=== PATIENT | male | born 1985 | race Caucasian/White ===

== ENCOUNTER 2016-04-22 09:48 | Emergency (ER) | payer OTHER ==
[~2016-04-22] VITALS: Wt 124.0 kg
[~2016-04-22 09:48] MED LIST: MED4DP PO; NAPR-260 PO
[2016-04-22] MEDS ORDERED: SOD CHLORIDE 0.9% 1,000 ML IV STA (10:39)
--- NOTE | 2016-04-22 10:57 | RADRPT ---
PROCEDURE: XR Chest. CLINICAL INDICATION: Syncope TECHNIQUE: AP view of the chest was obtained. COMPARISON: 11/24/2015 FINDINGS: The cardiomediastinal silhouette is within normal limits. The lungs are clear. No pleural effusion or pneumothorax is evident. IMPRESSION: No evidence of active cardiopulmonary disease. RPTAT: GG .Donell Blackwood MD, MD Date Time Electronically viewed and signed by .Donell Blackwood MD, on 04/22/2016 10:57 .O/
--- NOTE | 2016-04-22 11:06 | RADRPT ---
PROCEDURE: CT Brain without. CLINICAL INDICATION: Syncope TECHNIQUE: A CT of the brain was performed utilizing axial sections from the skull base through th e vertex without contrast. The scan was reviewed in soft tissue brain and high frequency resolution bone algorithm windows. Images were reviewed on a high-resolution PACS workstation. The exam CTDI = 43.95 mGy, and the DLP = 720.23 mGy-cm. COMPARISON: None available FINDINGS: The ventricles are normal in size and midline in position. There is no intracranial hemorrhage, mid line shift, or mass effect. No abnormal extra-axial fluid collections are identified. There is a 1 .8 x 3.1 cm cyst within the left anterior middle cranial fossa. The fong-white differentiation is we ll preserved. The basal cisterns are patent. The posterior fossa is unremarkable. The visualized portions of the orbits are unremarkable. There is mild mucosal thickening of the max illary sinuses. The paranasal sinuses and mastoid air cells are otherwise clear. No calvarial frac ture or abnormality are identified. The soft tissues are unremarkable. IMPRESSION: 1. No acute intracranial abnormality identified. 2. 1.8 x 3.1 cm arachnoid cyst within the left middle cranial fossa. 3. Mild mucosal thickening of the maxillary sinuses. RPTAT: HH .Jaymie Zarate MD, MD Date Time Electronically viewed and signed by .Jaymie Zarate MD, on 04/22/2016 11:06 .G/
[2016-04-22] MEDS ORDERED: KETOROLAC 15 MG INJ IV STA (11:33)
[2016-04-22] MEDS ORDERED: ACETAMINOPHEN 500 MG TAB PO STA (11:33)
[2016-04-22 11:37] LABS: BASOPHILS % 0.5 % (0.0-2.0); EOSINOPHILS # 0.3 10^3/ul (0.0-0.5); EOSINOPHILS % 4.4 % (0.0-7.0); HEMATOCRIT 49.6 % (42.0-52.0); HEMOGLOBIN 16.9 g/dl (14.0-18.0); LYMPHOCYTES # 0.9 10^3/ul (0.8-2.9); LYMPHOCYTES % 15.9 % (15.0-51.0); MEAN CORPUSCULAR HGB CONC 34.2 g/dl (32.0-37.0); MEAN CORPUSCULAR VOLUME 93.6 fl (82.0-101.0); MEAN PLATELET VOLUME 9.1 fl (7.4-10.4); MONOCYTE # 0.9 10^3/ul (0.3-0.9); MONOCYTES % 14.6 % (0.0-11.0); NEUTROPHIL # 3.8 10^3/ul (1.6-7.5); NEUTROPHILS % 64.6 % (39.0-77.0); PLATELET COUNT 154 10^3/UL (140-440); RED CELL DISTRIBUTION WIDTH 13.2 % (11.5-14.5); UNCORRECTED WBC 5.9 10^3/ul (4.8-10.8); WHITE BLOOD COUNT 5.9 10^3/ul (4.8-10.8)
[2016-04-22 11:38] LABS: CONDITION 1
[2016-04-22 11:46] LABS: POTASSIUM 3.4 mmol/L (3.5-5.1)
[2016-04-22 11:49] LABS: CREATININE 0.87 mg/dl (0.61-1.24)
[2016-04-22] MEDS ORDERED: IBUP800T25 PO (11:50)
--- NOTE | 2016-04-22 11:50 | ERD ---
ER Documentation Chief Complaint Date/Time DATE: 04/22/16 TIME: 11:46 Chief Complaint BODYACHES, FEVER, HEADACHE, COUGH, ONSET 3 DAYS HPI 30-year-old male no significant past medical history who presents to the emergency room with flulike symptoms. Unfortunately, the patient had a syncopal episode in triage and hit his head. The patient describes several days of flulike symptoms that include fever, myalgias, runny nose, cough and congestion. He states the cough is dry and nonproductive. He denies any rash, headache or neck stiffness. While the patient was checking and he started to feel lightheaded his vision closed in any fall to the ground hitting his head. He had no witnessed seizure activity, Accu-Chek was normal. The patient is now describing mild dull achy throbbing headache. ROS All systems reviewed and are negative except as per history of present illness. Medications Home Meds Active Scripts Ibuprofen* (Motrin*) 800 Mg Tab, 800 MG PO Q6H Y for PAIN AND OR ELEVATED TEMP, #30 TAB Prov:ZOHREH DUONG MD 04/22/16 Discontinued Scripts Methylprednisolone* (Medrol* DOSE PACK) 4 Mg/Dose-Pack Tab.ds.pk, 4 MG PO . DIRECTED, #1 PACKET Prov:ABEL GAINES PA-C 02/16/16 Naproxen* (Naprosyn*) 500 Mg Tablet, 500 MG PO BID Y for PAIN AND/OR INFLAMMATION, #30 TAB Prov:ABEL GAINES PA-C 02/16/16 Naproxen* (Naprosyn*) 500 Mg Tablet, 500 MG PO BID Y for PAIN AND/OR INFLAMMATION, #15 TAB Prov:NEFTALY BROWN DO 11/24/15 Allergies Allergies: Coded Allergies: No Known Allergy (Unverified , 07/10/12) PMhx/Soc History of Surgery: Yes (APPendectomy) Anesthesia Reaction: No Hx Neurological Disorder: No Hx Respiratory Disorders: No Hx Cardiac Disorders: No Hx Psychiatric Problems: No Hx Miscellaneous Medical Probl: No Hx Alcohol Use: Yes (last friday) Hx Substance Use: No Hx Tobacco Use: Yes (1 pack every 3 weeks) Smoking Status: Current every day smoker FmHx Family History: No diabetes Physical Exam Vitals Vital Signs Date Time Temp Pulse Resp B/P Pulse Ox O2 Delivery O2 Flow Rate FiO2 04/22/16 11:50 95 15 132/85 97 Nasal Cannula 3.0 04/22/16 09:51 101.4 102 18 162/93 98 Physical Exam Airway is intact Bilateral breath sounds Strong distal pulses No obvious deficits General: Well developed, well nourished, no acute distress, feels warm to touch Head: Normocephalic, atraumatic Eyes: Pupils equally reactive, EOM intact ENT: Moist mucous membranes Neck: Supple, no lymphadenopathy, No midline tenderness, deformities, step-offs to the cervical spine, full active and passive range of motion without midline pain. Respiratory: Lungs clear bilaterally, no distress, no chest wall tenderness, no crepitus Cardiovascular: RRR, no murmurs, rubs, or gallops Abdominal: Soft, non-tender, non-distended, no peritoneal signs, pelvis is stable : Deferred MSK: No edema, no unilateral swelling, 5/5 strength, no midline tenderness deformities or step-offs to the thoracolumbar spine Neurologic: Alert and oriented, moving all extremities, normal speech, no focal weakness, no cerebellar signs, no meningismus Skin: No ecchymoses or bruising to the chest or abdomen Psych: Normal mood Result Diagram: 04/22/16 1111 04/22/16 1111 Results 24 hrs Laboratory Tests Test 04/22/16 11:11 04/22/16 11:28 Anion Gap 17 Basophils # 0.010^3/ul Basophils % 0.5% Blood Urea Nitrogen 11mg/dl Calcium Level 9.0mg/dl Carbon Dioxide Level 24mmol/L Chloride Level 102mmol/L Creatinine 0.87mg/dl Eosinophils # 0.310^3/ul Eosinophils % 4.4% Glucose Level 111mg/dl Hematocrit 49.6% Hemoglobin 16.9g/dl Lymphocytes # 0.910^3/ul Lymphocytes % 15.9% Mean Corpuscular Hemoglobin 32.0pg Mean Corpuscular Hemoglobin Concent 34.2g/dl Mean Corpuscular Volume 93.6fl Mean Platelet Volume 9.1fl Monocytes # 0.910^3/ul Monocytes % 14.6% Neutrophils # 3.810^3/ul Neutrophils % 64.6% Nucleated Red Blood Cells # 0.010^3/ul Nucleated Red Blood Cells % 0.0/100WBC Platelet Count 89693^3/UL Potassium Level 3.4mmol/L Red Blood Count 5.3010^6/ul Red Cell Distribution Width 13.2% Sodium Level 140mmol/L White Blood Count 5.910^3/ul Bedside Glucose 108mg/dL Current Medications Medications (Trade) Dose Ordered Sig/Ken Route PRN Reason Start Time Stop Time Status Last Admin Dose Admin Sodium Chloride (NS) 1,000 ml @ 1,000 mls/hr Q1H STAT IV 04/22/16 10:39 04/22/16 11:38 DC 04/22/16 11:23 Ketorolac Tromethamine (Toradol) 15 mg ONCE STAT IV 04/22/16 11:33 04/22/16 11:34 DC 04/22/16 11:42 Acetaminophen (Tylenol Tab) 1,000 mg ONCE STAT PO 04/22/16 11:33 04/22/16 11:34 DC 04/22/16 11:42 Procedures/MDM EKG, MONITORS, & DIAGNOSTIC IMAGING: EKG: I reviewed and interpreted a 12-lead EKG. Rhythm: Normal sinus rhythm Ectopy: None Intervals: No abnormalities ST segments: No elevations or depressions T waves: No contiguous inversions Chest x-ray: I reviewed and interpreted a 1 view of the chest Mediastinum: No enlargement Cardiac silhouette: No cardiomegaly Airspace: Clear lung jennings bilaterally without evidence of pneumothorax Bones: No evidence of fracture CT brain: No acute process LAB INTERPRETATION: No leukocytosis, no anemia MEDICAL DECISION MAKING: The patient presents with flulike symptoms. The patient's clinical presentation is very consistent with an acute viral syndrome. The patient does not exhibit any clinical signs or symptoms concerning for serious bacterial infection or systemic illness. Based on history and clinical exam findings the patient does not appear to have evidence of pneumonia, strep pharyngitis, urinary tract infection, bacteremia, sepsis, or meningitis. The patient also had a syncopal episode in triage that is very consistent with vasovagal syncope. He did hit his head, no occipital hematoma. CT imaging is appropriate given head trauma. The patient does not meet high-risk criteria and based on NEXUS cervical spine criteria there is no indication for cervical spine imaging at this time. The patient's syncopal episode is not consistent with more serious etiology such as subarachnoid hemorrhage, dissection, meningitis. His headache occurred after the head trauma and is not consistent with meningitis or encephalitis. ER COURSE: The patient was evaluated he was given IV fluids, antipyretics with improved symptomatology. His laboratory testing and diagnostic imaging shows no evidence of endorgan dysfunction or serious etiology or injury secondary to fall. The patient was advised of symptom control including oral hydration, antipyretics. At this time no indication for antibiotics. The patient does not meet criteria for Tamiflu. I kept the patient and/or family informed of laboratory and diagnostic imaging results throughout the emergency room course. DISPOSITION PLAN: We discussed follow up with the patient's primary care doctor within 24 to 48 hours as needed. We also discussed return to the emergency room for worsening symptoms or worsening condition. Discharge Medications: Motrin Departure Diagnosis: Primary Impression: Influenza-like illness Additional Impressions: Vasovagal syncope Closed head injury Encounter type: initial encounter Qualified Code: S09.90XA - Closed head injury, initial encounter Condition: Stable ZOHREH DUONG MD Apr 22, 2016 11:49
[2016-04-22 12:03] LABS: D-DIMER < 220.00 ng/ml (<460)
[2016-04-22 13:07] VITALS: BP 123/78; PULSE 88; RESP 19; TEMP 98.7
== END 2016-04-22 13:37 | disposition home or self-care (01) ==
LOC: E/R 09:48
DX: R50.9 Fever, unspecified (principal); S09.90XA Unspecified injury of head, initial encounter; R55 Syncope and collapse; F17.210 Nicotine dependence, cigarettes, uncomplicated; W01.10XA Fall on same level from slipping, tripping and stumbling with subsequent striking against unspecified object, initial encounter; Y92.238 Other place in hospital as the place of occurrence of the external cause
CPT/HCPCS: 36415; 70450; 71010; 80048; 82962; 85025; 85378; 93005; 96374; J1885; J7030; Z7502; Z7610

== ENCOUNTER 2016-05-04 19:09 | Emergency (ER) | payer OTHER ==
[~2016-05-04] VITALS: Ht 177.8 cm; Wt 135.0 kg
[~2016-05-04 19:09] MED LIST changes: +IBUP800T25 PO; -MED4DP PO; -NAPR-260 PO
[2016-05-04 19:11] VITALS: Ht 177.8 cm; Wt 135.0 kg
--- NOTE | 2016-05-04 23:08 | ERD ---
ER Documentation Chief Complaint Date/Time DATE: 05/04/16 TIME: 23:04 Chief Complaint c/p pain, palpitations prior to arrival HPI This is a 30-year-old male who presents to the emergency department today complaining of palpitations that started yesterday at work. Patient states it stopped and then started back up again today at work. He states that he felt like he got pale and felt like he had numbness and that there was fluid moving through his body. Denies any cough, fevers or chills. ROS All systems reviewed and are negative except as per history of present illness. Medications Home Meds Active Scripts Ibuprofen* (Motrin*) 800 Mg Tab, 800 MG PO Q6H Y for PAIN AND OR ELEVATED TEMP, #30 TAB Prov:ZOHREH DUONG MD 04/22/16 Allergies Allergies: Coded Allergies: No Known Allergy (Unverified , 07/10/12) PMhx/Soc Medical and Surgical Hx: pt denies Medical Hx History of Surgery: Yes (APPendectomy) Anesthesia Reaction: No Hx Neurological Disorder: No Hx Respiratory Disorders: No Hx Cardiac Disorders: No Hx Psychiatric Problems: No Hx Miscellaneous Medical Probl: No Hx Alcohol Use: Yes (last friday) Hx Substance Use: Yes (COCAINE 1 TIME) Hx Tobacco Use: Yes (1 pack every 3 weeks) Smoking Status: Current some day smoker Physical Exam Vitals Vital Signs Date Time Temp Pulse Resp B/P Pulse Ox O2 Delivery O2 Flow Rate FiO2 05/04/16 19:11 98.6 90 18 145/88 95 Physical Exam Const: Talkative, no acute distress Head: Atraumatic Eyes: Normal Conjunctiva ENT: Normal External Ears, Nose and Mouth. Neck: Full range of motion..~ No meningismus. Resp: Clear to auscultation bilaterally. No absent breath sounds. No wheezing. Cardio: Regular rate and rhythm, no murmurs Abd: Soft, non tender, non distended. Normal bowel sounds Skin: No petechiae or rashes Back: No midline or flank tenderness Ext: No cyanosis, or edema. No leg pain. Neur: Awake and alert Psych: Normal Mood and Affect Procedures/MDM This is a 30-year-old male who presents to the emergency department today complaining of palpitations. EKG read and interpreted by Dr. Liz rate [address] elevation. No QT prolongation. Normal sinus rhythm with incomplete right bundle branch block. Patient had no syncopal episode. Low suspicion for acute SC, PE, pericarditis. I did offer to obtain a chest x-ray for the patient however he states he was here a couple of weeks ago for a fever and had a chest x-ray at that time that was negative. Patient declined a secondary chest x-ray. Patient denied feeling anxiety however his symptoms at this time appear most consistent with anxiety. I do not feel the patient requires further imaging or laboratory workup. Patient declined antianxiety meds here in the emergency department. He declined medication for home. I did discuss with the patient that he needed to follow-up and establish with a primary care physician as he does have insurance through his school. I have also given him a list of resources for cardiology as he appears to have these palpitations frequently. I explained to the patient that he could follow-up with them for a Holter monitor. This time patient is afebrile and otherwise well-appearing. He is very talkative in the exam room. Low suspicion for PE. He has no cough. At this time the patient is stable for discharge and outpatient management. Patient should follow up with their PCP in the next 1-2 days. They may return to the emergency department sooner for any persistent or worsening of symptoms. Patient understood and agreed with the plan. Departure Diagnosis: Primary Impression: Palpitations Condition: Fair Patient Instructions: Your Body's Response to Anxiety, Palpitations Referrals: ILENE SADLER,LIBORIO BERNARD MD,SHELBY BUSBY,CHERIE LOPEZ,AUBREY LI,LUCY FRY,JOANA JIN,BANDAR CHAVEZ,RUSTY GIBSON,BELINDA ARTEAGA,ERICK GARCIA,JOSE Chan MD [facility] YOU HAVE RECEIVED A MEDICAL SCREENING EXAM AND THE RESULTS INDICATE THAT YOU DO NOT HAVE A CONDITION THAT REQUIRES URGENT TREATMENT IN THE EMERGENCY DEPARTMENT. FURTHER EVALUATION AND TREATMENT OF YOUR CONDITION CAN WAIT UNTIL YOU ARE SEEN IN YOUR DOCTORS OFFICE WITHIN THE NEXT 1-2 DAYS. IT IS YOUR RESPONSIBILITY TO MAKE AN APPOINTMENT FOR FOLOW-UP CARE. IF YOU HAVE A PRIMARY DOCTOR --you should call your primary doctor and schedule an appointment IF YOU DO NOT HAVE A PRIMARY DOCTOR YOU CAN CALL OUR PHYSICIAN REFERRAL HOTLINE AT IF YOU CAN NOT AFFORD TO SEE A PHYSICIAN YOU CAN CHOSE FROM THE FOLLOWING [facility] [address] [facility] [address] [facility] [address] [facility] [address] [facility] [address] [facility] [facility]. [address] Additional Instructions: Call your primary care doctor TOMORROW for an appointment during the next 1-2 days.See the doctor sooner or return here if your condition worsens before your appointment time. Make an appointment with a primary care physician for referral to cardiology. TISHA FAIR PA-C May 04, 2016 23:08
[2016-05-04 23:31] VITALS: BP 128/78; PULSE 69; RESP 18; TEMP 98.7
== END 2016-05-04 23:32 | disposition home or self-care (01) ==
LOC: FTE 19:09
DX: R00.2 Palpitations (principal); F17.210 Nicotine dependence, cigarettes, uncomplicated
CPT/HCPCS: 93005; Z7502; 99283

== ENCOUNTER 2016-09-14 03:54 | Emergency (ER) | payer OTHER ==
[~2016-09-14] VITALS: Ht 177.8 cm; Wt 124.0 kg
[2016-09-14 03:59] VITALS: Ht 177.8 cm; Wt 124.0 kg
--- NOTE | 2016-09-14 04:24 | ERA ---
ER Documentation Chief Complaint Date/Time DATE: 09/14/16 TIME: 04:19 Chief Complaint low back pain running down to left leg since yesterday HPI This is a 30-year-old male who presents with left foot pain that radiates upwards to his back for the past 2 months. Patient states that walking and standing and pressure of the affected area on the bottom of the left foot makes it worse. Patient denies any relieving factors except for rest. Patient has not taken any medication to relieve the symptoms. Patient has been drinking 2 hours ago. Patient denies pain lasting more than 6 weeks; Denies saddle parasthesia, incontinence, RPND, or pain exacerbated by valsalva; Denies fever, chills, night sweats, weight loss, or increase symptoms at night. Patient also denies h/o diabetes, cardiovascular dz, sciatica, disk herniation, spinal stenosis, fibromyalgia, cancer, HIV, IVDU, arthritis or recent surgery. ROS All systems reviewed and are negative except as per history of present illness. Medications Home Meds Active Scripts Ibuprofen* (Motrin*) 800 Mg Tab, 800 MG PO Q6H Y for PAIN AND OR ELEVATED TEMP, #30 TAB Prov:ZOHREH DUONG MD 04/22/16 Allergies Allergies: Coded Allergies: No Known Allergy (Unverified , 07/10/12) PMhx/Soc History of Surgery: Yes (APPendectomy) Anesthesia Reaction: No Hx Neurological Disorder: No Hx Respiratory Disorders: No Hx Cardiac Disorders: No Hx Psychiatric Problems: No Hx Miscellaneous Medical Probl: No Hx Alcohol Use: Yes (last friday) Hx Substance Use: Yes (COCAINE 1 TIME) Hx Tobacco Use: Yes (1 pack every 3 weeks) Smoking Status: Current every day smoker Physical Exam Vitals Vital Signs Date Time Temp Pulse Resp B/P Pulse Ox O2 Delivery O2 Flow Rate FiO2 09/14/16 03:59 97.8 120 20 143/90 100 Physical Exam Const: Morbidly obese 30-year-old male Head: Atraumatic Eyes: Normal Conjunctiva ENT: Normal External Ears, Nose and Mouth. Neck: Full range of motion..~ No meningismus. Resp: Clear to auscultation bilaterally Cardio: Regular rate and rhythm, no murmurs Abd: Soft, non tender, non distended. Normal bowel sounds Skin: No petechiae or rashes Back: No midline or flank tenderness. Negative straight leg raise. No CVA tenderness. Ext: No cyanosis, or edema. Normal movement of all extremities with gross examination. Neur: Awake and alert. Neurovascularly intact bilaterally. Psych: Normal Mood and Affect Results 24 hrs Current Medications Medications (Trade) Dose Ordered Sig/Ken Route PRN Reason Start Time Stop Time Status Last Admin Dose Admin Ibuprofen (Motrin) 600 mg ONCE ONCE PO 09/14/16 04:30 09/14/16 04:31 DC 09/14/16 05:04 Procedures/MDM Patient was evaluated and worked up for left foot and lower back pain. Patient was given ibuprofen with moderate relief of symptoms. Workup included x -rays of the lumbar spine and of the left foot. Which revealed the following:L4 -5 spondylolisthesis (30%) with discogenic disease. The current most likely diagnosis includes, but is not limited to the following: Pain from radiographic findings of spondylolithiasis with discogenic disease, sciatica, meralgia paresthesia, Lorenz's neuroma, tarsal tunnel syndrome and other compressive peripheral neuropathies. Thus, the treatment plan will include an NSAID for discomfort as well as conservative therapy which has been discussed with the patient. At this time I do not suspect cauda equina syndrome , spinal cord compression, aortic aneurysm, aortic dissection, epidural abscess , spinal hematoma, malignancy, Charcot's foot, kidney stones or pyelonephritis. I have spoke with the patient regarding their condition and future management. They have verbally responded that they understand their status and treatment plan. The patients vitals are stable, and their current condition is appropriate for discharge. The patient will be given discharge instructions with return precautions. Departure Diagnosis: Primary Impression: Back pain Qualified Code: M54.5 - Chronic left-sided low back pain, with sciatica presence unspecified Additional Impression: Foot pain, left Condition: Stable Additional Instructions: Follow up with your PCP within the next 1-3 days for a more thorough evaluation and a possible referral to a specialist. Return the the emergency department immediately if symptoms worsen or change. If you have any questions regarding medications, ask your pharmacist or us before you leave. If any adverse reactions occur while taking your medications, discontinue the treatment and return to the emergency department immediately. Take your medications as directed, and complete the entire course of treatment. WENDY GUTHRIE PA-C September 14, 2016 04:24
[2016-09-14] MEDS ORDERED: IBUPROFEN 600 MG TAB PO ONE (04:30)
--- NOTE | 2016-09-14 06:01 | RADRPT ---
PROCEDURE: LUMBAR SPINE - 3 VIEWS CLINICAL INDICATION: 30-year-old male with back pain. TECHNIQUE: AP, lateral and cone-down lateral view of the lumbar spine were obtained. The images we re reviewed on a PACS workstation. COMPARISON: None. FINDINGS: The lumbar vertebral bodies have normal heights. There is evidence for L4 pars interarticularis def ects. There is anterolisthesis of L4 on L5 of approximately 30%. There is moderate L4-5 disk space narrowing. The partially visualized sacrum appears intact. The sacroiliac joints are unremarkable . IMPRESSION: L4-5 spondylolisthesis (30%) with discogenic disease. .Maxwell Christy MD, Date Time Electronically viewed and signed by .Maxwell Christy MD, on 09/14/2016 06:01 .Cookie
--- NOTE | 2016-09-14 06:03 | RADRPT ---
PROCEDURE: LEFT FOOT - 3 VIEWS CLINICAL INDICATION: 30-year-old male with left foot pain. TECHNIQUE: AP, lateral and oblique views of the left foot was obtained. The images were reviewed on a PACS workstation. COMPARISON: None. FINDINGS: The bones of the left foot appear intact, with no evidence of fracture, dislocation, or subluxation. The joint spaces are preserved. Bone mineralization is within normal limits. No radiopaque foreign body is seen. IMPRESSION: Unremarkable left foot radiographs. .Maxwell Christy MD, MD Date Time Electronically viewed and signed by .Maxwell Christy MD, on 09/14/2016 06:03 .M/
[2016-09-14] MEDS ORDERED: IBUP-1542 PO (06:26)
== END 2016-09-14 06:33 | disposition home or self-care (01) ==
LOC: FTE 03:54
DX: M54.40 Lumbago with sciatica, unspecified side (principal); M79.672 Pain in left foot; F17.210 Nicotine dependence, cigarettes, uncomplicated
CPT/HCPCS: 72100; 73630; Z7610

== ENCOUNTER 2016-10-23 18:40 | Emergency (ER) | payer OTHER ==
[~2016-10-23] VITALS: Ht 177.8 cm; Wt 122.0 kg
[~2016-10-23 18:40] MED LIST changes: +IBUP-1542 PO
[2016-10-23 19:06] VITALS: Ht 177.8 cm; Wt 122.0 kg
[2016-10-23] MEDS ORDERED: ACETAMINOPHEN 325 MG TAB PO STA (22:34)
[2016-10-23] MEDS ORDERED: SODIUM CHLORIDE 0.9% 1L BAG IV* STA (22:34)
[2016-10-23 23:04] LABS: ADD SCAN DIFF NO
[2016-10-23 23:07] LABS: ABNORMAL IP MESSAGE 1; BASOPHILS % 0.5 % (0.0-2.0); EOSINOPHILS % 0.3 % (0.0-7.0); HEMATOCRIT 48.2 % (42.0-52.0); HEMOGLOBIN 17.1 g/dl (14.0-18.0); LYMPHOCYTES # 0.5 10^3/ul (0.8-2.9); LYMPHOCYTES % 6.5 % (15.0-51.0); MEAN CORPUSCULAR HEMOGLOBIN 32.4 pg (29.0-33.0); MEAN CORPUSCULAR HGB CONC 35.5 g/dl (32.0-37.0); MEAN CORPUSCULAR VOLUME 91.5 fl (82.0-101.0); MEAN PLATELET VOLUME 11.2 fl (7.4-10.4); MONOCYTE # 0.4 10^3/ul (0.3-0.9); MONOCYTES % 5.8 % (0.0-11.0); NEUTROPHIL # 6.4 10^3/ul (1.6-7.5); NEUTROPHILS % 86.8 % (39.0-77.0); PLATELET COUNT 176 10^3/UL (140-415); RED BLOOD COUNT 5.27 10^6/ul (4.70-6.10); RED CELL DISTRIBUTION WIDTH 12.8 % (11.5-14.5); WHITE BLOOD COUNT 7.4 10^3/ul (4.8-10.8)
[2016-10-23 23:12] LABS: ADD UMIC NO; UR ASCORBIC ACID NEGATIVE (NEGATIVE); UR BILIRUBIN (Dip) NEGATIVE (NEGATIVE); UR BLOOD (Dip) NEGATIVE (NEGATIVE); UR CLARITY SLIGHTLY CLOUDY (CLEAR); UR COLOR YELLOW (YELLOW); UR GLUCOSE (Dip) NEGATIVE (NEGATIVE); UR KETONES (Dip) NEGATIVE (NEGATIVE); UR LEUKOCYTE ESTERASE (Dip) NEGATIVE Leu/ul (NEGATIVE); UR MUCUS MANY /HPF (NONE SEEN); UR NITRITE (Dip) NEGATIVE (NEGATIVE); UR RBC 2 /HPF (0-5); UR SPECIFIC GRAVITY (Dip) 1.025 (1.003-1.030); UR TOTAL PROTEIN (Dip) NEGATIVE (NEGATIVE); UR UROBILINOGEN (Dip) NEGATIVE (NEGATIVE)
[2016-10-23 23:40] LABS: INR 0.92; PARTIAL THROMBOPLASTIN TIME 27.1 Sec (25.0-35.0); PROTIME 12.4 Sec (12.2-14.2)
[2016-10-23 23:41] LABS: ALANINE AMINOTRANSFERASE 73 IU/L (13-69); ALBUMIN/GLOBULIN RATIO 1.47; ALKALINE PHOSPHATASE 73 IU/L (42-121); ANION GAP 16 (8-16); ASPARTATE AMINO TRANSFERASE 36 IU/L (15-46); BILIRUBIN,INDIRECT 0.5 mg/dl (0-1.1); BILIRUBIN,TOTAL 0.5 mg/dl (0.2-1.3); BLOOD UREA NITROGEN 10 mg/dl (7-20); CALCIUM 9.6 mg/dl (8.4-10.2); CARBON DIOXIDE 25 mmol/L (21-31); CHLORIDE 98 mmol/L (97-110); CREATININE 0.74 mg/dl (0.61-1.24); GLUCOSE 105 mg/dl (70-220); POTASSIUM 3.7 mmol/L (3.5-5.1); SODIUM 135 mmol/L (135-144); TOTAL PROTEIN 8.4 g/dl (6.1-8.1)
[2016-10-23 23:43] LABS: D-DIMER 897.37 ng/ml (<460)
--- NOTE | 2016-10-23 23:45 | RADRPT ---
PROCEDURE: XR Chest. CLINICAL INDICATION: Dyspnea and sepsis TECHNIQUE: AP Portable chest. COMPARISON: 04/22/2016 chest x-ray FINDINGS: The soft tissues and bones are remarkable for multiple EKG leads superimposed over the chest wall.. No focal infiltrates, masses, or effusions are noted. The mediastinum and heart are normal. No pn eumothorax is present. IMPRESSION: 1. No radiographic evidence for acute cardiopulmonary disease RPTAT: HDC .Ivett Nick MD, Date Time Electronically viewed and signed by .Ivett Nick MD, on 10/23/2016 23:45 .C/
[2016-10-23 23:53] LABS: TROPONIN-I < 0.012 ng/ml (0.00-0.12)
[2016-10-24] MEDS ORDERED: IOHEXOL 100 ML ONE (00:40)
[2016-10-24] MEDS ORDERED: SOD CHLORIDE 0.9% 100 ML ONE (00:40)
--- NOTE | 2016-10-24 02:04 | RADRPT ---
PROCEDURE: CTA Chest. CLINICAL INDICATION: Chest pain, rule out pulmonary embolism. TECHNIQUE: Direct spiral axial sections were obtained from the thoracic inlet to the upper abdomen with the use of 100 cc of Omnipaque 350 nonionic intravenous contrast material. Axial MIP, coronal, and sagittal reformations were obtained. The images were reviewed on a PACS workstation. CTDIvol: 2 0.04 mGy. DLP: 798.38 mGy-cm. One or more of the following dose reduction techniques were used: - Automated exposure control. - Adjustment of the mA and/or kV according to patient size. - Use of iterative reconstruction technique. COMPARISON: None. FINDINGS: No pulmonary embolism is identified, however evaluation for subsegmental emboli in the lingula is li mited by cardiac motion. The main pulmonary artery is normal in caliber. There is no aortic aneurys m. The heart is not enlarged. There is no pericardial effusion. There are minimal atelectatic changes in the lungs. There is no pulmonary edema or consolidation. N o pleural effusion or pneumothorax is identified. No suspicious thyroid lesion is seen. There is no thoracic lymphadenopathy. The trachea and mainste m bronchi are patent. Limited evaluation of the upper abdomen is unremarkable. There is no suspicious osseous lesion. IMPRESSION: 1. No pulmonary embolism is identified, however evaluation for subsegmental emboli in the lingula i s limited by cardiac motion. 2. No pulmonary edema or consolidation. RPTAT: HTAR .Jerry Frederick MD, Date Time Electronically viewed and signed by .Jerry Frederick MD, on 10/24/2016 02:04 .R/
[2016-10-24 02:22] VITALS: BP 142/89; PULSE 92; RESP 20; TEMP 99.2
[2016-10-24] MEDS ORDERED: ONDA4TAB14 PO (02:35)
--- NOTE | 2016-10-24 04:35 | ERD ---
ER Documentation Chief Complaint Date/Time DATE: 10/24/16 TIME: 03:58 Chief Complaint palpitation and dizzy [address] [employer]. Denies CP at this time HPI 30-year-old male with no previous medical history presenting with palpitations for the past few hours. He denies any associated chest pain or significant shortness of breath. He has not noticed any fevers, chills, coughing, URI symptoms. He does endorse dizziness and vomiting several times today with nonbloody loose stools. He had mild epigastric pain earlier but now that has resolved. He denies any recent travel, immobilization, leg swelling or pain. No history of blood clots. ROS All systems reviewed and are negative except as per history of present illness. Medications Home Meds Active Scripts Ondansetron (Ondansetron Odt) 4 Mg Tab.rapdis, 4 MG PO Q6H Y for NAUSEA AND/OR VOMITING, #10 TAB Prov:SHERIDAN NGUYEN MD 10/24/16 Discontinued Scripts Ibuprofen* (Motrin*) 600 Mg Tab, 600 MG PO Q6, #15 TAB Prov:SANNA BILLS NP 09/14/16 Ibuprofen* (Motrin*) 800 Mg Tab, 800 MG PO Q6H Y for PAIN AND OR ELEVATED TEMP, #30 TAB Prov:ZOHREH DUONG MD 04/22/16 Allergies Allergies: Coded Allergies: No Known Allergy (Unverified , 10/23/16) PMhx/Soc History of Surgery: Yes (APPendectomy) Anesthesia Reaction: No Hx Neurological Disorder: No Hx Respiratory Disorders: No Hx Cardiac Disorders: No Hx Psychiatric Problems: No Hx Miscellaneous Medical Probl: No Hx Alcohol Use: Yes (occasional) Hx Substance Use: Yes (COCAINE 1 TIME) Hx Tobacco Use: No (1 pack every 3 weeks) Smoking Status: Former smoker FmHx Family History: No diabetes Physical Exam Vitals Vital Signs Date Time Temp Pulse Resp B/P Pulse Ox O2 Delivery O2 Flow Rate FiO2 10/24/16 02:22 99.2 92 20 142/89 100 Room Air 10/23/16 23:03 Nasal Cannula 10/23/16 19:06 101.2 132 18 132/83 96 Physical Exam Const: Nontoxic, no distress, overweight Head: Atraumatic Eyes: Normal Conjunctiva ENT: Normal External Ears, Nose and Mouth. Posterior oropharynx normal Neck: Full range of motion. No JVD. No meningismus. Resp: No tachypnea, clear to auscultation bilaterally Cardio: Tachycardic with regular rhythm, no murmurs Abd: Soft, non tender, non distended. Normal bowel sounds Skin: No petechiae or rashes Back: No midline or flank tenderness Ext: No cyanosis, or edema Neur: Awake and alert and oriented 3, cranial nerves intact, strength and sensations intact in all 4 extremities, normal gait Psych: Normal Mood and Affect Result Diagram: 10/23/16224910/23/162249 Results 24 hrs Laboratory Tests Test 10/23/16 22:50 10/24/16 00:25 White Blood Count 7.410^3/ul Red Blood Count 5.2710^6/ul Hemoglobin 17.1g/dl Hematocrit 48.2% Mean Corpuscular Volume 91.5fl Mean Corpuscular Hemoglobin 32.4pg Mean Corpuscular Hemoglobin Concent 35.5g/dl Red Cell Distribution Width 12.8% Platelet Count 34983^3/UL Mean Platelet Volume 11.2fl Neutrophils % 86.8% Lymphocytes % 6.5% Monocytes % 5.8% Eosinophils % 0.3% Basophils % 0.5% Nucleated Red Blood Cells % 0.0/100WBC Neutrophils # 6.410^3/ul Lymphocytes # 0.510^3/ul Monocytes # 0.410^3/ul Eosinophils # 0.010^3/ul Basophils # 0.010^3/ul Nucleated Red Blood Cells # 0.010^3/ul Prothrombin Time 12.4Sec Prothrombin Time Ratio 1.0 INR International Normalized Ratio 0.92 Activated Partial Thromboplast Time 27.1Sec D-Dimer 897.37ng/ml D-Dimer Comment Urine Color YELLOW Urine Clarity SLIGHTLY CLOUDY Urine pH 5.0 Urine Specific [place] 1.025 Urine Ketones NEGATIVEmg/dL Urine Nitrite NEGATIVEmg/dL Urine Bilirubin NEGATIVEmg/dL Urine Urobilinogen NEGATIVEmg/dL Urine Leukocyte Esterase NEGATIVELeu/ul Urine Microscopic RBC 2/HPF Urine Microscopic WBC 1/HPF Urine Mucus MANY/HPF Urine Hemoglobin NEGATIVEmg/dL Urine Glucose NEGATIVEmg/dL Urine Total Protein NEGATIVEmg/dl Sodium Level 135mmol/L Potassium Level 3.7mmol/L Chloride Level 98mmol/L Carbon Dioxide Level 25mmol/L Anion Gap 16 Blood Urea Nitrogen 10mg/dl Creatinine 0.74mg/dl Glucose Level 105mg/dl Lactic Acid Level 1.4mmol/L 1.3mmol/L Calcium Level 9.6mg/dl Total Bilirubin 0.5mg/dl Direct Bilirubin 0.00mg/dl Indirect Bilirubin 0.5mg/dl Aspartate Amino Transf (AST/SGOT) 36IU/L Alanine Aminotransferase (ALT/SGPT) 73IU/L Alkaline Phosphatase 73IU/L Troponin I < 0.012ng/ml Total Protein 8.4g/dl Albumin 5.0g/dl Globulin 3.40g/dl Albumin/Globulin Ratio 1.47 Lipase 42U/L Current Medications Medications (Trade) Dose Ordered Sig/Ken Route PRN Reason Start Time Stop Time Status Last Admin Dose Admin Sodium Chloride (NS) 3,780 ml BOLUS OVER 2 HOURS STAT IV* 10/23/16 22:34 10/23/16 22:37 DC 10/23/16 22:58 Acetaminophen (Tylenol Tab) 650 mg ONCE STAT PO 10/23/16 22:34 10/23/16 22:37 DC 10/23/16 23:02 IV Flush 10 ml 10 ml STK-MED ONCE .ROUTE 10/24/16 00:40 10/24/16 00:41 DC 10/24/16 01:20 Sodium Chloride 100 ml @ ud STK-MED ONCE .ROUTE 10/24/16 00:40 10/24/16 00:41 DC 10/24/16 01:20 Iohexol (Omnipaque) 100 ml @ ud STK-MED ONCE .ROUTE 10/24/16 00:40 10/24/16 00:41 DC 10/24/16 01:20 Procedures/MDM EKG: Rate/Rhythm: Sinus tachycardia at 137 bpm QRS, ST, T-waves: Left anterior fascicular block, no changes consistent w/ acute ischemia Impression: No evidence of ischemia or arrhythmia Labs CBC: no anemia or evidence of infection CMP: No evidence of electrolyte abnormality, renal failure, hypoglycemia, liver failure, or biliary obstruction D-dimer elevated Troponin within normal limits Lactate within normal limits UA: no evidence of infection Chest x-ray shows no acute abnormalities CTPA: IMPRESSION: 1. No pulmonary embolism is identified, however evaluation for subsegmental emboli in the lingula is limited by cardiac motion. 2. No pulmonary edema or consolidation. .Jerry Frederick MD, MD Date Time Electronically viewed and signed by .Jerry Frederick MD, on 10/24/2016 02:04 [facility] Patient is presenting with palpitations and fever. Sepsis workup was initiated. D-dimer was sent given patient's tachycardia, making him PERC positive. Chest x-ray did not show pneumonia. Abdominal exam is not concerning for acute surgical abdomen. There is no evidence of UTI. His d- dimer was elevated so CT pulmonary angiogram was ordered that did not show pneumonia or PE. IV fluids and anti-emetics were given. Upon reevaluation, the patient felt much better. His tachycardia and fever had improved. I suspect his symptoms are secondary to an acute gastroenteritis and less likely a serious bacterial infection. Given his complaints of waking up at night short of breath, I advised the patient to see his primary care doctor regarding this as he may have obstructive sleep apnea. Patient is agreeable with this plan. He plans to follow-up with his PMD. Return precautions were discussed. Patient was discharged in a stable condition. Departure Diagnosis: Primary Impression: Palpitations Additional Impressions: Vomiting and diarrhea Febrile illness, acute Condition: Stable Patient Instructions: Self-Care for Vomiting and Diarrhea, Palpitations Referrals: [facility] YOU HAVE RECEIVED A MEDICAL SCREENING EXAM AND THE RESULTS INDICATE THAT YOU DO NOT HAVE A CONDITION THAT REQUIRES URGENT TREATMENT IN THE EMERGENCY DEPARTMENT. FURTHER EVALUATION AND TREATMENT OF YOUR CONDITION CAN WAIT UNTIL YOU ARE SEEN IN YOUR DOCTORS OFFICE WITHIN THE NEXT 1-2 DAYS. IT IS YOUR RESPONSIBILITY TO MAKE AN APPOINTMENT FOR FOL-UP CARE. IF YOU HAVE A PRIMARY DOCTOR --you should call your primary doctor and schedule an appointment IF YOU DO NOT HAVE A PRIMARY DOCTOR YOU CAN CALL OUR PHYSICIAN REFERRAL HOTLINE AT IF YOU CAN NOT AFFORD TO SEE A PHYSICIAN YOU CAN CHOSE FROM THE FOLLOWING [facility] [address] [facility] [address] [facility] [address] [facility]. [facility] [address] [facility]. [facility] [address] [facility]. [facility] [address] Additional Instructions: See your primary care doctor within the next 1-2 days. Return to the ER for any worsening symptoms. SHERIDAN NGUYEN MD Oct 24, 2016 04:35
== END 2016-10-24 02:55 | disposition home or self-care (01) ==
LOC: E/R 18:40
DX: R00.2 Palpitations (principal); R11.10 Vomiting, unspecified; R19.7 Diarrhea, unspecified; R50.9 Fever, unspecified; R10.13 Epigastric pain; Z87.891 Personal history of nicotine dependence
CPT/HCPCS: 71010; 71275; 80053; 81001; 83605; 83690; 84484; 85025; 85378; 85610; 85730; 87086; 93005; J7030; Q9967; Z7610; 36415; 81003

== ENCOUNTER 2018-02-15 19:36 | Emergency (ER) | END 2018-02-15 22:35 | disposition home or self-care (01) ==